=== PATIENT | female | born 1990 | race Caucasian/White ===

== ENCOUNTER 2020-12-14 04:22 | Day surgery (SDC) | payer BC ==
[2020-12-13 11:44] VITALS: BMI 24.1
[2020-12-14] MEDS ORDERED: LIDOCAINE 1%/EPI 1:100000 (50 ML MULTI DOSE VIAL) ONE (07:28)
[2020-12-14] MEDS ORDERED: LIDOCAINE 1%/EPI 1:100000 (20 ML MULTI DOSE VIAL) IJ ONE ×3 (08:20→08:40)
[2020-12-14] MEDS ORDERED: COCAINE HCL 4% TOPICAL SOLUTION 4 ML BOTTLE TP ONE (08:20)
[2020-12-14] MEDS ORDERED: oxyCODONE HCL 5 MG TABLET PO PRN (09:36)
[2020-12-14] MEDS ORDERED: ACETAMINOPHEN 500 MG TABLET (FP) PO PRN (09:36)
[2020-12-14] MEDS ORDERED: ONDANSETRON 4 MG/2 ML VIAL IVPUSH PRN (09:36)
[2020-12-14] MEDS ORDERED: IBUPROFEN 800 MG/8 ML IJ IVPB PRN (09:36)
[2020-12-14] MEDS ORDERED: LACTATED RINGERS SOLUTION 1,000 ML IV SCH (09:45)
[2020-12-14] MEDS ORDERED: ONDANSETRON 4 MG/2 ML VIAL ONE (11:37)
[2020-12-14 12:19] VITALS: BP 105/72; PULSE 77; TEMP 97.5
== END 2020-12-14 13:19 | disposition home or self-care (01) ==
LOC: JASU-SURG 04:22
PROVIDERS: ATTEND Otolaryngology
PROC: 09TV8ZZ Resection of Left Ethmoid Sinus, Via Natural or Artificial Opening Endoscopic (ICD-10-PCS; 2020-12-14)
PROC: 09TU8ZZ Resection of Right Ethmoid Sinus, Via Natural or Artificial Opening Endoscopic (ICD-10-PCS; 2020-12-14)
PROC: 8E09XBZ Computer Assisted Procedure of Head and Neck Region (ICD-10-PCS; principal; 2020-12-14 08:00)
DX: J32.2 Chronic ethmoidal sinusitis (principal); J32.0 Chronic maxillary sinusitis; J33.8 Other polyp of sinus; J34.2 Deviated nasal septum
CPT/HCPCS: 81025; 88304-TC; 88311-TC; 94760